=== PATIENT | male | born 1985 | race African-American/Black ===

== ENCOUNTER 2019-09-17 22:33 | Emergency (ER) | payer MEDICAID ==
[~2019-09-17] VITALS: Ht 172.7 cm; Wt 93.2 kg
[2019-09-18] MEDS ORDERED: NORCO, ANEXSIA 5/325MG TABLET (HYDROcodone/ACETAMINOPHEN) PO ONE (00:15)
[2019-09-18] MEDS ORDERED: IBUP-1022 PO (01:18)
[2019-09-18] MEDS ORDERED: NORC1TAB7 PO (01:18)
[2019-09-18] MEDS ORDERED: NORCO 5/325MG TABLET (BULK FOR ED) PO ONE (01:30)
[2019-09-18 01:31] VITALS: BP 149/85
--- NOTE | 2019-09-18 05:29 | REP ---
Clinical: Trauma. Technique: AP, lateral, bilateral oblique views of the right hand. Findings: There is a fracture through the distal aspect of the fourth metacarpal bone with volar angulation as well as a subtle nondisplaced fracture at the base of the fifth metacarpal bone. Overlying soft tissue swelling. No further acute fracture or dislocation identified. Impression: Fractures involving the fourth and fifth metacarpal bones. Electronically Signed by Henry Jackson MD 09/18/2019 05:21 A
== END 2019-09-18 01:32 | disposition home or self-care (01) ==
LOC: M ED 22:33
DX: S62.304A Unspecified fracture of fourth metacarpal bone, right hand, initial encounter for closed fracture (principal); S62.306A Unspecified fracture of fifth metacarpal bone, right hand, initial encounter for closed fracture; W23.0XXA Caught, crushed, jammed, or pinched between moving objects, initial encounter; Y92.099 Unspecified place in other non-institutional residence as the place of occurrence of the external cause; Y93.72 Activity, wrestling; Y99.9 Unspecified external cause status